=== PATIENT | female | born 1940 | race Caucasian/White ===

== ENCOUNTER → 2017-11-04 15:41 | Outpatient (CLI) | payer MEDICARE, SELFPAY ==
[2017-11-04 18:16] LABS: TSH w/ Reflex to FT4 0.04 uIU/mL (0.47-4.68)
[2017-11-04 19:32] LABS: Free T4, Direct Thyroxine 0.97 ng/dL (0.78-2.19)
== END ==
PROVIDERS: Family Provider Family Medicine; PCP Family Medicine; Visit Provider Family Medicine
DX: E03.9 Hypothyroidism, unspecified (principal)
CPT/HCPCS: 36415; 84439; 84443

== ENCOUNTER → 2018-01-20 09:43 | Outpatient (CLI) | payer MEDICARE, SELFPAY ==
[2018-01-20 11:05] LABS: Add Manual Diff / Slide Review NO; Basophils Percent Auto 0.7 % (0-2); Eosinophils Percent Auto 1.9 % (2-4); Hematocrit 41.7 % (36-46); Hemoglobin 14.1 g/dL (12.0-16.0); Lymphocytes Percent Auto 19.7 % (25-40); Mean Corpuscular HGB Conc 33.8 % (30-36); Mean Corpuscular Hemoglobin 36.2 PG (26-34); Mean Corpuscular Volume 106.9 fL (80-100); Monocytes Percent Auto 7.5 % (3-14); Neutrophils Absolute Auto 7000 /uL (3000-5900); Neutrophils Percent Auto 70.2 % (50-75); Platelet Count 359 X10^3/uL (150-400); Red Cell Distribution Width 12.9 % (11.6-14.8); White Blood Cell Count 9.9 X10^3/uL (4.5-11.0)
[2018-01-20 11:31] LABS: Alanine Aminotransferase 23 IU/L (9-52); Albumin 4.2 g/dL (3.5-5.0); Albumin Globulin Ratio 1.2 (1.0-2.8); Alkaline Phosphatase 56 U/L (38-126); Aspartate Aminotransferase 38 IU/L (14-36); Bilirubin Total 0.5 mg/dL (0.2-1.3); Blood Urea Nitrogen 16 mg/dL (7-17); Calcium 9.8 mg/dL (8.4-10.2); Carbon Dioxide 21 mmol/L (22-32); Chloride 110 mmol/L (98-107); Estimated Glomerular Filt Rate > 60.0 mL/min (>60); Globulin 3.5 g/dL (1.7-4.1); Glucose 119 mg/dL (80-110); HEMOLYSIS < 15 (0-50); Magnesium 1.8 mg/dL (1.6-2.3); Sodium 146 mmol/L (137-145); Total Protein 7.7 g/dL (6.3-8.2)
[2018-01-20 11:59] LABS: TSH w/ Reflex to FT4 0.11 uIU/mL (0.47-4.68)
[2018-01-20 13:29] LABS: Free T4, Direct Thyroxine 1.07 ng/dL (0.78-2.19)
[2018-01-20 19:23] LABS: Vitamin B12 > 1000 pg/mL (239-931)
[2018-01-26 16:24] LABS: Homocysteine 16.5 umol/L (< 10.4)
[2018-01-27 22:53] LABS: Methylmalonic Acid 193 nmol/L (87-318)
== END ==
PROVIDERS: Family Provider Orthopaedic Surgery; PCP Family Medicine; Visit Provider Specialist
DX: R42 Dizziness and giddiness (principal); R06.09 Other forms of dyspnea; E78.2 Mixed hyperlipidemia; E83.42 Hypomagnesemia; E87.6 Hypokalemia; I10 Essential (primary) hypertension; E03.9 Hypothyroidism, unspecified
CPT/HCPCS: 36415; 80053; 82607; 83090; 83704; 83735; 83921; 84439; 84443; 85025

== ENCOUNTER → 2018-12-06 10:39 | Outpatient (CLI) | payer MEDICARE, SELFPAY ==
[2018-12-06 12:01] LABS: Add Manual Diff / Slide Review NO; Basophils Absolute Auto 0 /uL (0-100); Basophils Percent Auto 0.5 % (0-2); Eosinophils Absolute Auto 200 /uL (0-450); Eosinophils Percent Auto 1.8 % (2-4); Hematocrit 35.3 % (36-46); Hemoglobin 11.9 g/dL (12.0-16.0); Lymphocytes Absolute Auto 1200 /uL (1100-4500); Lymphocytes Percent Auto 13.9 % (25-40); Mean Corpuscular HGB Conc 33.8 % (30-36); Mean Corpuscular Hemoglobin 35.4 PG (26-34); Mean Corpuscular Volume 104.8 fL (80-100); Monocytes Absolute Auto 600 /uL (0-900); Monocytes Percent Auto 6.8 % (3-14); Neutrophils Absolute Auto 6500 /uL (1500-7000); Platelet Count 634 X10^3/uL (150-400); Red Blood Cell Count 3.37 X10^6/uL (4.0-5.2); Red Cell Distribution Width 13.5 % (11.6-14.8); White Blood Cell Count 8.4 X10^3/uL (4.5-11.0)
[2018-12-06 12:51] LABS: HEMOLYSIS 24 (0-50); Iron 85 ug/dL (37-170)
[2018-12-06 12:59] LABS: Alanine Aminotransferase 14 IU/L (9-52); Albumin 3.2 g/dL (3.5-5.0); Albumin Globulin Ratio 0.9 (1.0-2.8); Alkaline Phosphatase 88 U/L (38-126); Aspartate Aminotransferase 30 IU/L (14-36); Bilirubin Total 0.4 mg/dL (0.2-1.3); Blood Urea Nitrogen 21 mg/dL (7-17); Calcium 9.7 mg/dL (8.4-10.2); Carbon Dioxide 21 mmol/L (22-32); Chloride 111 mmol/L (98-107); Cholesterol 116 mg/dL (140-199); Estimated Glomerular Filt Rate > 60.0 mL/min (>60); Globulin 3.6 g/dL (1.7-4.1); Glucose 132 mg/dL (80-110); HDL Cholesterol 42 mg/dL (40-60); HEMOLYSIS 24 (0-50); LDL Cholesterol Calculated 27 mg/dL (<100); Lipase 99 U/L (23-300); Magnesium 1.5 mg/dL (1.6-2.3); Potassium 4.8 mmol/L (3.4-5.1); Sodium 143 mmol/L (137-145); Total Protein 6.8 g/dL (6.3-8.2); Triglycerides 233 mg/dL (35-150)
[2018-12-06 13:03] LABS: Percent Iron Saturation 39 % (15-50); Total Iron Binding Capacity 217 ug/dL (265-497); Transferrin 172 mg/dL (206-381)
[2018-12-06 13:22] LABS: TSH w/ Reflex to FT4 0.23 uIU/mL (0.47-4.68)
[2018-12-06 13:32] LABS: Ferritin 76.1 ng/mL (11.1-264)
[2018-12-06 13:46] LABS: Vitamin B12 938 pg/mL (239-931)
[2018-12-06 14:13] LABS: Free T4, Direct Thyroxine 1.01 ng/dL (0.78-2.19)
== END ==
PROVIDERS: PCP Family Medicine; Visit Provider Family Medicine
DX: D50.8 Other iron deficiency anemias (principal); I10 Essential (primary) hypertension; K85.90 Acute pancreatitis without necrosis or infection, unspecified; R94.5 Abnormal results of liver function studies; I25.10 Atherosclerotic heart disease of native coronary artery without angina pectoris
CPT/HCPCS: 36415; 80053; 80061; 82607; 82728; 83540; 83550; 83690; 83735; 84439; 84443; 85025